=== PATIENT | male | born 1960 | race Caucasian/White ===

== ENCOUNTER 2019-03-07 08:05 | Emergency (ER) | payer BC | END 2019-03-07 08:50 | disposition left against medical advice (07) | LOC: ER 08:05 | DX: Z53.21 Procedure and treatment not carried out due to patient leaving prior to being seen by health care provider (principal); R53.1 Weakness ==

== ENCOUNTER → 2020-04-25 | Outpatient (CLI) | payer OTHER ==
--- NOTE | 2020-04-26 10:39 | RADIOLOGY REPORT (SQ) ---
EXAM DESCRIPTION: MRI RT UPPER JOINT WITHOUT IMAGES COMPLETED DATE/TIME: 04/25/2020 3:38 pm REASON FOR STUDY: (M25.511)PAIN IN RIGHT SHOULDER M25.511 PAIN IN RIGHT SHOULDER COMPARISON: None. TECHNIQUE: Right shoulder images acquired and stored on PACS. Multiplanar imaging to include fat sen sitive sequences such as T1, water sensitive sequences such as FST2/STIR, cartilage sensitive sequenc es such as FSPD/gradient-echo sequences. LIMITATIONS: Motion. FINDINGS: BONE MARROW AND CORTEX: No worrisome bone lesions or marrow replacement. No occult fractur es. JOINT OR BURSAL EFFUSION: No. GLENO-HUMERAL ARTICULATION: Moderate arthropathy. ACROMION AND AC JOINT: Type 1 acromion. Mild -moderate AC joint arthropathy. ROTATOR CUFF AND INTERVAL: Mild tendinosis in the supraspinatus. No significant tear identified. No rotator interval tear. No rotator interval thickening to suggest adhesive capsulitis. LABRUM AND BICEPS LABRAL COMPLEX: Intact. REMAINDER OF LABRUM AND IGHL : Intact. PERIARTICULAR AND ADJACENT SOFT TISSUES: No masses or abnormal nodes. OTHER: No other significant finding. IMPRESSION: 1. Moderate glenohumeral joint arthropathy. 2. Mild cuff tendinosis without significant tear. TECHNICAL DOCUMENTATION: JOB ID: [id number] 2010 [employer]- All Rights Reserved Reading location - IP/workstation name: [email or web address]
== END ==
LOC: RAD 14:43
PROVIDERS: ATTEND Orthopaedic Surgery Sports Medicine
DX: M25.511 Pain in right shoulder (principal); M12.811 Other specific arthropathies, not elsewhere classified, right shoulder; M75.81 Other shoulder lesions, right shoulder